=== PATIENT | female | born 1990 | race Caucasian/White ===

== ENCOUNTER 2017-09-16 11:34 | Emergency (ER) | payer OTHER ==
[2017-09-16 11:43] VITALS: BP 111/69; BMI 23.9
--- NOTE | 2017-09-16 12:47 | RAD ---
Examination: Left forearm, two views History: Forearm pain Findings: No evidence for fracture, dislocation or contour deformity involving radius or ulna. Joint spaces are preserved. Impression: No acute osseous findings. Reported By:
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
[2017-09-16] MEDS ORDERED: MORPHINE SULFATE INJ 4 MG IM ONE (12:56)
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
[2017-09-16] MEDS ORDERED: MORPHINE SULFATE INJ 4 MG ONE (13:00)
[2017-09-16] MEDS ORDERED: NEOSPORIN OINT ONE (13:00)
== END 2017-09-16 13:23 | disposition home or self-care (01) ==
LOC: ER 11:53
DX: S50.812A Abrasion of left forearm, initial encounter (principal); S63.92XA Sprain of unspecified part of left wrist and hand, initial encounter; V28.2XXA Unspecified motorcycle rider injured in noncollision transport accident in nontraffic accident, initial encounter; W19.XXXA Unspecified fall, initial encounter; Y92.9 Unspecified place or not applicable
CPT/HCPCS: 73090; 73130; 96372; 99282; J2270